=== PATIENT | female | born 1990 | race African-American/Black ===

== ENCOUNTER 2016-05-22 19:58 | Emergency (ER) | payer OTHER ==
[2016-05-22] MEDS ORDERED: HYDROCODONE/ACETAMINOPHEN 5-325 MG TABLET PO ONE (20:17)
[2016-05-22] MEDS ORDERED: ONDANSETRON 4 MG TAB.RAPDIS PO ONE (20:17)
--- NOTE | 2016-05-22 20:19 | ER Document Report ---
ED Medical Screen (RME) - General Chief Complaint: Chest Pain Stated Complaint: LEFT SIDED CHEST PAIN Notes: This 26-year-old female patient comes emergency room with left-sided chest pain that started this morning. She reports smoking who, last night, but no injury or straining. She has been hurting all day, it hurts to breathe, and feels short of breath. Her lungs are clear, the left lateral ribs are quite tender to palpate reproducing the chief complaint. I have greeted and performed a rapid initial assessment of this patient. A comprehensive ED assessment and evaluation of the patient, analysis of test results and completion of the medical decision making process will be conducted by additional ED providers. TRAVEL OUTSIDE OF THE [place] IN LAST 30 DAYS: No - Related Data Allergies/Adverse Reactions: No Known Allergies Allergy (Unverified 05/22/16 20:02) Past Medical History Renal/ Medical History: Denies: Hx Peritoneal Dialysis Physical Exam - Vital signs Vitals: Temp Pulse Resp BP Pulse Ox 98.0 F 82 20 123/73 100 05/22/16 20:02 05/22/16 20:02 05/22/16 20:02 05/22/16 20:02 05/22/16 20:02 Course - Vital Signs Vital signs: Temp Pulse Resp BP Pulse Ox 98.0 F 82 20 123/73 100 05/22/16 20:02 05/22/16 20:02 05/22/16 20:02 05/22/16 20:02 05/22/16 20:02
[2016-05-23] MEDS ORDERED: HYDROCODONE/ACETAMINOPHEN 5-325 MG 6 TAB/DSPK PO PRN (01:21)
--- NOTE | 2016-05-23 01:26 | ER Document Report ---
ED Cardiac - General Chief Complaint: Chest Pain Stated Complaint: LEFT SIDED CHEST PAIN Time seen by provider: 01:25 Mode of Arrival: Ambulatory Information source: Patient TRAVEL OUTSIDE OF THE [place] IN LAST 30 DAYS: No - HPI Patient complains to provider of: Chest pain, Shortness of breath Was the onset of pain: Gradual Is the pain a: New problem Chest pain location: Under breast Quality of pain: Achy Severity now: None Severity at worst: Moderate Pain level currently: 0 Positive cardiac history: No Exacerbated by: Coughing, Deep breaths, Torso movement Relieved by: Nothing Similar symptoms previously: No Recently seen / treated by doctor: No Notes: Patient is a 26-year-old female who presents to emergency room complaining of left-sided chest pain started, she reports that she got a new hookah and she was smoking it bit yesterday evening, when she woke up this morning she was experiencing pain which worsens with coughing, deep breathing or movement of the torso, pain is specifically in the lateral area of the left lower ribs, patient denies any history of coronary artery disease or other cardiac disease, denies having symptoms like this previously, not currently taking any medications, reports her pain is nearly resolved after receiving hydrocodone in triage area - Related Data Allergies/Adverse Reactions: No Known Allergies Allergy (Unverified 05/22/16 20:02) Past Medical History - General Information source: Patient - Social History Smoking Status: Current Some Day Smoker Family History: Reviewed & Not Pertinent Patient has suicidal ideation: No Patient has homicidal ideation: No Renal/ Medical History: Denies: Hx Peritoneal Dialysis Review of Systems - Review of Systems Constitutional: No symptoms reported EENT: No symptoms reported Cardiovascular: See HPI Respiratory: See HPI Gastrointestinal: No symptoms reported Genitourinary: No symptoms reported Female Genitourinary: No symptoms reported Musculoskeletal: No symptoms reported Skin: No symptoms reported Hematologic/Lymphatic: No symptoms reported Neurological/Psychological: No symptoms reported -: Yes All other systems reviewed and negative Physical Exam - Vital signs Vitals: Temp Pulse Resp BP Pulse Ox 98.0 F 82 20 123/73 100 05/22/16 20:02 05/22/16 20:02 05/22/16 20:02 05/22/16 20:02 05/22/16 20:02 Interpretation: Normal - General General appearance: Appears well, Alert - HEENT Head: Normocephalic, Atraumatic Eyes: Normal Pupils: PERRL - Respiratory Respiratory status: No respiratory distress Chest status: Tender - Mild tenderness to palpate in the left lateral lower ribs Breath sounds: Normal Chest palpation: Normal - Cardiovascular Rhythm: Regular Heart sounds: Normal auscultation Murmur: No - Abdominal Inspection: Normal Distension: No distension Bowel sounds: Normal Tenderness: Nontender Organomegaly: No organomegaly - Back Back: Normal, Nontender - Extremities General upper extremity: Normal inspection, Nontender, Normal color, Normal ROM , Normal temperature General lower extremity: Normal inspection, Nontender, Normal color, Normal ROM , Normal temperature, Normal weight bearing. No: Luca's sign - Neurological Neuro grossly intact: Yes Cognition: Normal Orientation: AAOx4 [place] Coma Scale Eye Opening: Spontaneous [place] Coma Scale Verbal: Oriented [place] Coma Scale Motor: Obeys Commands [place] Coma Scale Total: 15 Speech: Normal Motor strength normal: LUE, RUE, LLE, RLE Sensory: Normal - Psychological Associated symptoms: Normal affect, Normal mood - Skin Skin Temperature: Warm Skin Moisture: Dry Skin Color: Normal Course - Re-evaluation Re-evalutation: 05/23/16 02:04 11 EKG findings discussed with patient at bedside which are unremarkable, symptoms are musculoskeletal in nature as there reproducible with palpation of the left lower rib cage, patient was provided with pain medication and information for follow-up, advised to discontinue smoking hookah, follow up with her primary care provider or return if symptoms worsen, patient acknowledges understanding and agreement with this plan, unfortunately patient left prior to receiving her discharge paperwork and hydrocodone to go pack from nursing staff - Vital Signs Vital signs: Temp Pulse Resp BP Pulse Ox 98.0 F 65 18 118/72 96 05/22/16 20:02 05/23/16 01:15 05/23/16 01:15 05/23/16 01:15 05/23/16 01:15 - Diagnostic Test Radiology reviewed: Image reviewed, Reports reviewed - EKG Interpretation by Me EKG shows normal: Sinus rhythm Rate: Normal Rhythm: NSR Discharge - Discharge Clinical Impression: Chest wall pain Condition: Stable Disposition: HOME, SELF-CARE Instructions: Chest Wall Pain ([facility]), Oral Narcotic Medication ([facility]) Additional Instructions: Follow up with your primary care provider in one to 2 days. Return to the emergency room immediately if symptoms worsen or any additional concerns.
[2016-05-23 01:50] VITALS: BP 118/72
--- NOTE | 2016-05-23 07:20 | EKG REPORT ---
SEVERITY:- NORMAL ECG - SINUS RHYTHM : Confirmed by: Alfonso Brandon MD 23-May-2016 07:20:30
== END 2016-05-23 01:35 | disposition home or self-care (01) ==
LOC: ER 19:58
DX: R07.89 Other chest pain (principal); R06.02 Shortness of breath; F17.290 Nicotine dependence, other tobacco product, uncomplicated
CPT/HCPCS: 93005; 99285; 71020; 93010; S0119